=== PATIENT | female | born 1975 | race Caucasian/White ===

== ENCOUNTER 2019-03-26 07:12 | Emergency (ER) | payer OTHER ==
[2019-03-26] MEDS ORDERED: METOCLOPRAMIDE INJ 10MG/2ML VIAL (J2765) IV ONE (07:45)
[2019-03-26] MEDS ORDERED: ACETAMINOPHEN 500 MG TAB PO ONE (07:45)
[2019-03-26] MEDS ORDERED: NS 1,000 ML IV SCH (07:45)
[2019-03-26] MEDS ORDERED: KETOROLAC 30 MG/ML VIAL (J1885) IV ONE (07:45)
[2019-03-26 07:57] LABS: BASO % 0.5 % (0.0-1.0); EOS % 0.5 % (0.0-3.0); HEMATOCRIT 46.3 % (36.0-47.0); LYMPH # 1.2 10^3/uL (1.5-4.5); LYMPH % 15.9 % (24.0-44.0); MEAN CORPUSCULAR HEMOGLOBIN 31.4 pg (27.0-33.0); MEAN CORPUSCULAR HGB CONC 34.6 g/dl (32.0-36.5); MEAN CORPUSCULAR VOLUME 90.8 fl (80.0-96.0); MONO # 0.4 10^3/uL (0.0-0.8); MONO % 5.9 % (0.0-5.0); NEUTROPHILS # 5.7 10^3/uL (1.8-7.7); NEUTROPHILS % 76.7 % (36.0-66.0); PLATELET COUNT, AUTOMATED 249 10^3/uL (150-450); WHITE BLOOD COUNT 7.5 10^3/uL (4.0-10.0)
[2019-03-26 08:19] LABS: ALBUMIN 4.2 GM/DL (3.2-5.2); ALT/SGPT 21 U/L (12-78); BILIRUBIN,DIRECT < 0.1 MG/DL (0.0-0.2); BILIRUBIN,TOTAL 0.3 MG/DL (0.2-1.0); BLOOD UREA NITROGEN 16 MG/DL (7-18); CARBON DIOXIDE LEVEL 28 MEQ/L (21-32); CHLORIDE LEVEL 105 MEQ/L (98-107); CREATININE FOR GFR 1.13 MG/DL (0.55-1.30); GLOMERULAR FILTRATION RATE 55.9 (>58); GLUCOSE, FASTING 101 MG/DL (70-100); LIPASE 160 U/L (73-393); SODIUM LEVEL 138 MEQ/L (136-145)
--- NOTE | 2019-03-26 09:17 | REP ---
CT ABDOMEN AND PELVIS WITHOUT CONTRAST: CT abdomen and pelvis was performed without oral or IV contrast. Sagittal and coronal reconstruction images are performed. Visualized lung bases demonstrate no evidence of infiltrate. Liver, gallbladder, spleen, adrenals and pancreas are grossly unremarkable. There is a punctate calcification in the right mid renal collecting system without right hydronephrosis. There is mild left hydronephrosis. There is a 4 mm calculus in the lower pole collecting system. There is a 2 mm calculus at the left ureterovesical junction. Urinary bladder is not well distended and there is no gross intraluminal calculus. There is no abdominal aortic aneurysm. No gross adenopathy is seen. There is no free air. No free fluid is visualized. No gross bowel abnormality is seen. There appears to be a cystic structure of the left ovary 2.9 cm in diameter. There also appears to be a fibroid projection from the posterior uterus on the left measuring about 2.3 cm in diameter. IMPRESSION: Mild left hydronephrosis appears to be caused by a 2 mm calculus at the left ureterovesical junction. There is also a 4 mm calculus in the left lower collecting system. Left ovary demonstrates a cystic structure 2.9 cm in diameter. Electronically Signed by Merlin Burton MD 03/26/2019 12:32 P
[2019-03-26] MEDS ORDERED: KETO10TAB PO (10:24)
[2019-03-26] MEDS ORDERED: MACR100C43 PO (10:26)
[2019-03-26] MEDS ORDERED: NORC1TAB7 PO (10:28)
[2019-03-26 10:47] VITALS: BP 105/78
== END 2019-03-26 11:00 | disposition home or self-care (01) ==
LOC: M ED 07:12
DX: N13.2 Hydronephrosis with renal and ureteral calculous obstruction (principal); N83.202 Unspecified ovarian cyst, left side; Z72.0 Tobacco use
CPT/HCPCS: 36415; 74176; 80048; 80076; 81001; 83690; 84702; 85025; 87086; 96360; 96361; 96374; 96375; 99284; J1885; J2765